=== PATIENT | male | born 1955 | race Caucasian/White ===

== ENCOUNTER 2018-11-07 15:28 | Emergency (ER) | payer MEDICAID ==
[2018-11-07] MEDS ORDERED: Cyclobenzaprine TAB* 10 MG PO ONE (15:51)
[2018-11-07] MEDS ORDERED: Lidocaine PATCH 5%* 1 PATCH ONE ×2 (16:01)
[2018-11-07 17:03] VITALS: BP 149/71
--- NOTE | 2018-11-07 17:03 | ED ---
Back Pain - HPI Summary HPI Summary: Pt is a 62 y/o male who presents to the ED c/o back pain. Hes had constant back pain and sciatica for decades but the pain has become worse in the past 6 weeks. Pt rates the pain as a 9/10 in severity, is located in his center back , and is made worse with movement. He denies any new injury. Pt also c/o numbness and weakness in his legs which is constant due to his sciatica. He denies any urinary symptoms. Pt was in a [facility] for 7 years because his back pain makes him unable to function, but was discharged 6 weeks ago. He notes having multiple imaging studies for his pain in the past, and has tried both physical therapy and chiropractors. PMHx Wernickes Encephalopathy. Pt takes Flexeril and Depakote, but has been off the Flexeril the past 6 weeks. - History of Current Complaint Stated Complaint: BACK PAIN Time Seen by Provider: 11/07/18 15:37 Hx Obtained From: Patient Onset/Duration: Gradual Onset, Lasting Weeks - 6, Worse Since Timing: Constant Back Pain Location: Is Discrete @ - center back Severity Currently: Severe Pain Intensity: 9 Pain Scale Used: 0-10 Numeric Aggravating Symptom(s): Movement Alleviating Symptom(s): Nothing Associated Signs And Symptoms: Positive: Weakness, Numbness. Negative: Bladder Incontinence - Allergies/Home Medications Allergies/Adverse Reactions: Allergies Allergy/AdvReac Type Severity Reaction Status Date / Time No Known Allergies Allergy Verified 11/07/18 15:46 Home Medications: Home Medications Divalproex DR TAB(*) [Depakote DR TAB(*)] 125 mg PO TID 11/07/18 [History Confirmed 11/07/18] PMH/Surg Hx/FS Hx/Imm Hx Endocrine/Hematology History: Denies: Hx Diabetes Cardiovascular History: Denies: Hx Hypertension Neurological History: Reports: Hx Dementia - Wernicke's Encephalopathy, Other Neuro Impairments/Disorders - Sciatica Psychiatric History: Reports: Hx Anxiety, Other Psychiatric Issues/Disorders - ETOH Infectious Disease History: No Infectious Disease History: Denies: Traveled Outside the US in Last 30 Days - Family History Known Family History: Negative: Hypertension - Social History Alcohol Use: Weekly Hx Substance Use: No Substance Use Type: Reports: None Hx Tobacco Use: Yes Smoking Status (MU): Light Every Day Tobacco Smoker Review of Systems Genitourinary: Negative Positive: Myalgia - back Positive: Weakness - legs, Numbness - legs All Other Systems Reviewed And Are Negative: Yes Physical Exam - Summary Physical Exam Summary: Appearance: chronically-ill appearing, no pain distress Skin: warm, dry, reflects adequate perfusion Head/face: normal Eyes: EOMI, SPIKE ENT: mucous membranes moist Neck: supple, non-tender Respiratory: CTA, breath sounds present Cardiovascular: RRR, pulses symmetrical Abdomen: non-tender, soft Bowel Sounds: present Musculoskeletal: strength/ROM intact, pain with movement of low lumbar back, no palpable back pain, negative straight leg raise Neuro: normal, sensory motor intact, A&Ox3, 2+ patellar DTRs, normal saddle and LE sensation Triage Information Reviewed: Yes Vital Signs On Initial Exam: Initial Vitals Temp Pulse Resp BP Pulse Ox 99.2 F 97 16 144/96 99 11/07/18 15:39 11/07/18 15:39 11/07/18 15:39 11/07/18 15:39 11/07/18 15:39 Vital Signs Reviewed: Yes Diagnostics - Vital Signs Vital Signs Temp Pulse Resp BP Pulse Ox 11/07/18 15:39 99.2 F 97 16 144/96 99 - Laboratory Lab Statement: Any lab studies that have been ordered have been reviewed, and results considered in the medical decision making process. - CT Lumbar Spine CT CT Interpretation Completed By: Radiologist Summary of CT Findings: 1. OSTEOPENIA WITH AGE-INDETERMINATE COMPRESSION DEFORMITIES OF T12, L3, AND L4 WITHOUT SIGNIFICANT OSSEOUS RETROPULSION. 2. DEGENERATIVE DISC DISEASE AND OSTEOARTHRITIS. THERE IS NEURAL FORAMINAL NARROWING DESCRIBED ABOVE. THERE IS NO SIGNIFICANT CENTRAL CANAL STENOSIS. ED physician reviewed radiology report. - Ultrasound No standard instances Ultrasound Interpretation Completed By: Radiologist Summary of Ultrasound Findings: US performed at bedside by ED physician: abdominal aorta 2.32 cm in diameter Back Pain Course/Dx - Course Course Of Treatment: Nurse's notes reviewed. Patient with chronic back pain for many many years that is worse basically on no treatment. He is found to have confirmed compression fractures on CT scan today. These are likely chronic in nature. He had no new trauma. There is no evidence for metastatic disease. On abdominal ultrasound at the bedside by me there is no abdominal aortic aneurysm. He was feeling better with Lidoderm patch and Flexeril. He' ll be placed on Mobic given normal renal function in the past as well as as needed Flexeril. If elected continue Lidoderm patch he will have to have this preauthorized by his doctor. - Diagnoses Differential Diagnosis/HQI/PQRI: Positive: Aneurysm, Arthritis, Fracture, Herniated Disc, Neoplasm, Osteoporosis, Strain, Sprain Provider Diagnoses: Chronic back pain, Thoracic compression fracture, Lumbar compression fracture Discharge - Sign-Out/Discharge Documenting (check all that apply): Patient Departure - Discharge Patient Received Moderate/Deep Sedation with Procedure: No - Discharge Plan Condition: Stable Disposition: HOME Prescriptions: Cyclobenzaprine (NF) [Cyclobenzaprine 5 MG (NF)] 5 mg PO TID PRN #20 tab PRN Reason: back pain Meloxicam [Mobic] 7.5 mg PO DAILY #30 tablet Patient Education Materials: Vertebral Compression Fracture (ED) Referrals: Judd Tejada MD [Primary Care Provider] - Enoch Higgins MD [Medical Doctor] - Additional Instructions: Call first thing in the morning to schedule prompt follow-up with your family doctor. You have multiple compression fractures that are causing problems. Follow-up with the neuro spine surgeon Dr. Higgins. Return with the faculty urinating, instability when walking, numbness/weakness that is new, worse or other concerns. - Billing Disposition and Condition Condition: STABLE Disposition: Home - Attestation Statements Document Initiated by Elizabethibe: Yes Documenting Scribe: Traci Feng Provider For Whom Scribe is Documenting (Include Credential): Lennox Cotto MD Scribe Attestation: ITraci, scribed for Lennox Cotto MD on 11/07/18 at 1720. Scribe Documentation Reviewed: Yes Provider Attestation: The documentation as recorded by the Traci zendejas accurately reflects the service I personally performed and the decisions made by me, Lennox Cotto MD Status of Scribe Document: Viewed
[2018-11-07] MEDS ORDERED: Lidocaine Patch REMOVE* 1 NOTE MISC SCH (21:00)
[2018-11-08] MEDS ORDERED: Lidocaine PATCH 5%* 1 PATCH TRANSDERM ONE (15:53)
== END 2018-11-07 17:02 | disposition home or self-care (01) ==
LOC: ED 15:28
DX: S22.080A Wedge compression fracture of T11-T12 vertebra, initial encounter for closed fracture (principal); S32.030A Wedge compression fracture of third lumbar vertebra, initial encounter for closed fracture; S32.040A Wedge compression fracture of fourth lumbar vertebra, initial encounter for closed fracture; X58.XXXA Exposure to other specified factors, initial encounter; Y92.9 Unspecified place or not applicable; F17.200 Nicotine dependence, unspecified, uncomplicated
CPT/HCPCS: 72131; 99282; A9270-GY

== ENCOUNTER 2019-03-26 16:35 | Inpatient (IN) | payer MEDICAID ==
[2019-03-26] MEDS ORDERED: Thiamine IV 100 MG, Folic Acid IV* 1 MG, Multiple Vitamin IV ADULT* 10 ML in NS 0.9% 10... IV ONE (17:07)
--- NOTE | 2019-03-26 17:35 | ED ---
Seizure - HPI Summary HPI Summary: 63-year-old male presents with potentially seizure today. He was at the [facility] building when had a seizure and EMS was called. he was post ictal for 25 minutes. When arrive here was a bit groggy. He denies any history of seizure. He does have a history of werinecke encephalopathy. He states he did drink some alcohol yesterday but did not drink anything today. He states he's been drinking less alcoho he states than in the past. He denies any nausea vomiting. He does admit to headache. Denies any tremor. Does admit to some anxiety. No auditory or visual hallucinations. His record shows that he is on Depakote but is unsure why on such. is homeless. He is a poor historian. He denies any pain currently. - History Of Current Complaint Chief Complaint: EDSeizure Time Seen by Provider: 03/26/19 16:59 - Allergies/Home Medications Allergies/Adverse Reactions: Allergies Allergy/AdvReac Type Severity Reaction Status Date / Time Milk Containing Products Allergy Diarrhea Verified 03/26/19 16:49 PMH/Surg Hx/FS Hx/Imm Hx Endocrine/Hematology History: Denies: Hx Diabetes Cardiovascular History: Denies: Hx Hypertension Neurological History: Reports: Hx Dementia - Wernicke's Encephalopathy, Other Neuro Impairments/Disorders - Sciatica Psychiatric History: Reports: Hx Anxiety, Other Psychiatric Issues/Disorders - ETOH Infectious Disease History: No Infectious Disease History: Denies: Traveled Outside the US in Last 30 Days - Family History Known Family History: Negative: Hypertension - Social History Alcohol Use: Weekly Hx Substance Use: No Substance Use Type: Reports: None Hx Tobacco Use: Yes Smoking Status (MU): Light Every Day Tobacco Smoker Review of Systems Negative: Fever Negative: Chest Pain Negative: Shortness Of Breath Neurological: Other - potential seizure All Other Systems Reviewed And Are Negative: Yes Physical Exam Triage Information Reviewed: Yes Vital Signs On Initial Exam: Initial Vitals Temp Pulse Resp BP Pulse Ox 99.1 F 117 16 140/107 97 03/26/19 16:42 03/26/19 16:42 03/26/19 16:42 03/26/19 16:42 03/26/19 16:42 Vital Signs Reviewed: Yes Appearance: Positive: Well-Appearing Skin: Positive: Warm, Dry Head/Face: Positive: Normal Head/Face Inspection Eyes: Positive: Normal, Conjunctiva Clear ENT: Positive: Pharynx normal Respiratory/Lung Sounds: Positive: Clear to Auscultation, Breath Sounds Present Cardiovascular: Positive: Normal, RRR Abdomen Description: Positive: Nontender, Soft Bowel Sounds: Positive: Present Musculoskeletal: Positive: Normal Neurological: Positive: Sensory/Motor Intact, Alert, Oriented to Person Place, Time, CN Intact II-III Psychiatric: Positive: Normal - [place] Coma Scale Best Eye Response: 4 - Spontaneous Best Motor Response: 6 - Obeys Commands Best Verbal Response: 5 - Oriented Coma Scale Total: 15 Diagnostics - Vital Signs Vital Signs Temp Pulse Resp BP Pulse Ox 03/26/19 17:23 110 24 134/93 96 03/26/19 17:06 110 23 148/93 96 03/26/19 17:00 111 96 03/26/19 16:53 112 97 03/26/19 16:42 99.1 F 117 16 140/107 97 - Laboratory Result Diagrams: 03/26/19 17:33 03/26/19 22:28 Lab Statement: Any lab studies that have been ordered have been reviewed, and results considered in the medical decision making process. - CT brain CT Interpretation Completed By: Radiologist Summary of CT Findings: IMPRESSION: NO ACUTE INTRACRANIAL PATHOLOGY. DIFFUSE INVOLUTIONAL CHANGE WITH CHRONIC SMALL VESSEL ISCHEMIC CHANGES. - EKG No standard instances Cardiac Rate: Tachycardia EKG Rhythm: Sinus Tachycardia Summary of EKG Findings: sinus tachycardia Re-Evaluation - Re-Evaluation First Eval Re-Evaluation Time: 19:20 Change: Improved Comment: is more alert Course/Dx - Course Course Of Treatment: 63-year-old male presents with potentially seizure today. He was at the [facility] building when had a seizure and EMS was called. he was post ictal for 25 minutes. When arrive here was a bit groggy. He denies any history of seizure. He does have a history of werinecke encephalopathy. He states he did drink some alcohol yesterday but did not drink anything today. He states he's been drinking less alcoho he states than in the past. He denies any nausea vomiting. He does admit to headache. Denies any tremor. Does admit to some anxiety. No auditory or visual hallucinations. His record shows that he is on Depakote but is unsure why on such. is homeless. He is a poor historian. He denies any pain currently. On exam he was initially groggy but is alert and oriented. Has a normal neuro exam. CT brain normal. lactic elevated. CIWA-Ar initially 4. discussed with dr bardales who says to admit for ETOH seizure vs new onset. dr ray agrees to admit. - Diagnoses Differential Diagnosis/HQI/PQRI: Positive: Alcohol Withdrawal, Intracranial Bleed, New Onset Seizure Provider Diagnoses: Seizure Discharge - Sign-Out/Discharge Documenting (check all that apply): Patient Departure Patient Received Moderate/Deep Sedation with Procedure: No - Discharge Plan Condition: Stable Disposition: ADMITTED TO [facility] - Billing Disposition and Condition Condition: STABLE Disposition: Admitted to [facility]
[2019-03-26 17:40] LABS: ABS Lymphocytes 0.5 10^3/ul (1.0-4.8); ABS Monocytes 0.5 10^3/ul (0-0.8); ABS Neutrophils 7.1 10^3/ul (1.5-7.7); Eosinophil % 0.1 %; Hematocrit 48 % (42-52); Hemoglobin 16.4 g/dL (14.0-18.0); Lymphocyte % 6.1 %; Mean Corpuscular HGB Conc 34 g/dL (31-36); Mean Corpuscular Hemoglobin 33 pg (27-31); Mean Corpuscular Volume 96 fL (80-94); Mean Platelet Volume 8.6 fL (7.4-10.4); Nucleated Red Blood Cells % 0.1; Platelet Count 150 10^3/uL (150-450); Red Blood Count 5.02 10^6 /uL (4.18-5.48); Red Cell Distribution Width 16 % (10-15); White Blood Count 8.2 10^3/uL (3.5-10.8)
[2019-03-26 17:53] LABS: INR 1.09 (0.82-1.09)
[2019-03-26 17:59] LABS: ALT 89 U/L (7-52); AST 54 U/L (13-39); Albumin 3.9 g/dL (3.2-5.2); Albumin/Globulin Ratio 1.3 (1-3); Alkaline Phosphatase 69 U/L (34-104); Anion Gap 9 mmol/L (2-11); BUN/Creatinine Ratio 10.3 (8-20); Blood Urea Nitrogen 7 mg/dL (6-24); CO2 Carbon Dioxide 24 mmol/L (22-32); Calcium 9.6 mg/dL (8.6-10.3); Chloride 91 mmol/L (101-111); EGFR African American 142.5 (>60); EGFR Non-African American 117.8 (>60); Globulin 3.1 g/dL (2-4); Glucose 114 mg/dL (70-100); Magnesium 1.9 mg/dL (1.9-2.7); Potassium 4.4 mmol/L (3.5-5.0); Sodium 124 mmol/L (135-145)
[2019-03-26 18:06] LABS: Alcohol < 10 mg/dL (<10)
[2019-03-26 19:15] LABS: Urine Appearance Cloudy; Urine Bacteria Absent (Absent); Urine Bilirubin Negative (Negative); Urine Blood 1+ (Negative); Urine Color Amber; Urine Glucose Negative (Negative); Urine Ketones 1+ (Negative); Urine Nitrite Negative (Negative); Urine Protein 1+(30 mg/dL) (Negative); Urine Red Blood Cell 2+(6-10/hpf) (Absent); Urine Specific Gravity 1.015 (1.010-1.030); Urine Squamous Epithelial Cell Present (Absent); Urine Urobilinogen Negative (Negative); Urine White Blood Cell Trace(0-5/hpf) (Absent)
--- NOTE | 2019-03-26 21:47 | HP ---
History of Present Illness - History of Present Illness Reason for Visit: Witnessed Seizure History of Present Illness: 63YOM with alcohol abuse, Wernicke's encephalopathy, Dementia, Ejection fraction reported to be 30% in 2009, possible seizure Hx here due to witnessed seizure. Patient doesn't recall the event. Complains of his chronic back pain at this time. Last alcohol use was today. I discussed with ER staff who state patient is homeless and was to be placed in care home and has been having his story change throughout his ER stay likely confabulation. - Past Medical History PATIENT PARTNER: Dementia, Other - Wernicke's encephalopathy, Possible seizures. - Past Surgical History Past Surgical History: Other - Arthoscopic surgery of right knee. - Past Family History Family History: None - Past Social History Smoke: 1 pack per day - 40 years of Hx Alcohol: Heavy - 12pack of beer a night. About 40 years of alcohol as well. Drugs: Cocaine - Used it as teenager., Marijuana - Used as teenager. Lives: Alone - Lives in apartment. Review of Systems - Measurements Intake and Output: Intake and Output Last 24 Hours 03/24/19 03/25/19 03/26/19 03/27/19 06:59 06:59 06:59 06:59 Output Total 1000 Balance -1000 Weight 150 lb Output: Urine 1000 - Review of Systems Constitutional Symptoms: Negative: Fatigue, Fever Eyes: Negative: Change in Vision Pulmonary: Negative: Cough, Shortness of Breath Cardiology: Negative: Chest Pain, Shortness of Breath Gastroenterology: Positive: Nausea Negative: Vomiting Neurology: Negative: Headache, Change in Vision, Diplopia Objective Active Medications: Allergies Allergy/AdvReac Type Severity Reaction Status Date / Time Milk Containing Products Allergy Diarrhea Verified 03/26/19 16:[address] TAB(*) [Depakote DR TAB(*)] 125 mg PO TID 11/07/18 [History Confirmed 03/26/19] Vital Signs - 8 hr 03/26/19 03/26/19 03/26/19 16:42 16:53 17:00 Temperature 99.1 F Pulse Rate 117 112 111 Respiratory 16 Rate Blood Pressure 140/107 (mmHg) O2 Sat by Pulse 97 97 96 Oximetry 03/26/19 03/26/19 03/26/19 17:06 17:23 17:48 Temperature Pulse Rate 110 110 Respiratory 23 24 Rate Blood Pressure 148/93 134/93 (mmHg) O2 Sat by Pulse 96 96 97 Oximetry 03/26/19 03/26/19 03/26/19 17:53 18:00 18:23 Temperature Pulse Rate 108 106 107 Respiratory 29 33 23 Rate Blood Pressure 137/87 143/93 (mmHg) O2 Sat by Pulse 97 96 95 Oximetry 03/26/19 03/26/19 03/26/19 18:53 19:00 19:23 Temperature Pulse Rate 104 105 101 Respiratory 30 25 21 Rate Blood Pressure 132/92 148/94 (mmHg) O2 Sat by Pulse 98 99 99 Oximetry 03/26/19 03/26/19 19:53 20:00 Temperature Pulse Rate 99 100 Respiratory 26 20 Rate Blood Pressure 147/97 (mmHg) O2 Sat by Pulse 98 95 Oximetry Oxygen Devices in Use Now: None Eyes: No Scleral Icterus Ears/Nose/Mouth/Throat: NL Teeth, Lips, Gums, Clear Oropharnyx, Mucous Membranes Moist Neck: NL Appearance and Movements; NL JVP Respiratory: Clear to Auscultation Cardiovascular: NL Sounds; No Murmurs; No JVD, - - Tachycardia Abdominal: NL Sounds; No Tenderness; No Distention, No Hepatosplenomegaly Skin: - - Erythema noted on face likely sunburn. Neurological: Alert and Oriented x 3, NL Sensation, NL Muscle Strength and Tone Result Diagrams: 03/26/19 17:33 03/26/19 22:28 Diagnostic Imaging: CT brain: No acute changes. EKG Data: Sinus Tachy at 112. Old Inferior infarct. Assess/Plan/Problems-Billing Assessment: 63YOM with alcohol abuse, Wernicke's encephalopathy, Dementia, Ejection fraction reported to be 30% in 2008, possible seizure Hx here due to witnessed seizure. ER spoke with neurology who recommended monitoring overnight given his homeless status. - Patient Problems (1) Seizure Current Visit: Yes Status: Acute Code(s): R56.9 - UNSPECIFIED CONVULSIONS SNOMED Code(s): 54019243 Comment: Follow up Neurology recommendation. EEG. Continue the home dilantin. (2) Hyponatremia Current Visit: Yes Status: Acute Code(s): E87.1 - HYPO-OSMOLALITY AND HYPONATREMIA SNOMED Code(s): 43973475 Comment: Check serum osmo and urine lytes. Start IV hydration. (3) Alcohol abuse Current Visit: Yes Status: Acute Code(s): F10.10 - ALCOHOL ABUSE, UNCOMPLICATED SNOMED Code(s): 90130687 Comment: WAM monitoring. Ativan PRN for any anxiety. (4) Lactic acid acidosis Current Visit: Yes Status: Acute Code(s): E87.2 - ACIDOSIS SNOMED Code(s) : 05641078 Comment: Likely due to seizure repeat lab normal.
[2019-03-26] MEDS ORDERED: NS 0.9% 1000 ML** 1,000 ML IV SCH (22:15)
[2019-03-26 22:54] LABS: BUN/Creatinine Ratio 9.8 (8-20); Calcium 9.2 mg/dL (8.6-10.3); EGFR African American 161.5 (>60); EGFR Non-African American 133.5 (>60); Potassium 3.9 mmol/L (3.5-5.0)
[2019-03-26] MEDS: Enoxaparin(*) 40 MG/0.4 ML SYR SUBCUT SCH (23:39)
[2019-03-27] MEDS ORDERED: LORazepam TAB(*) 0.5 MG PO PRN (00:12)
[2019-03-27] MEDS ORDERED: Thiamine IV* 100 MG in NS 0.9% 50 ML* 50 ML IV SCH (01:00)
[2019-03-27] MEDS ORDERED: LORazepam INJ* 2 MG/ML 1 ML VIAL IM SCH (03:00)
[2019-03-27] MEDS ORDERED: Diazepam TAB(*) 10 MG PO SCH (03:00)
[2019-03-27] MEDS ORDERED: LORazepam TAB(*) 1 MG PO SCH (03:00)
[2019-03-27 06:32] LABS: ABS Monocytes 0.6 10^3/ul (0-0.8); ABS Neutrophils 4.5 10^3/ul (1.5-7.7); Eosinophil % 0.3 %; Hematocrit 46 % (42-52); Hemoglobin 15.8 g/dL (14.0-18.0); Lymphocyte % 15.6 %; Mean Corpuscular HGB Conc 35 g/dL (31-36); Mean Corpuscular Hemoglobin 33 pg (27-31); Mean Corpuscular Volume 96 fL (80-94); Mean Platelet Volume 8.7 fL (7.4-10.4); Nucleated Red Blood Cells % 0.1; Platelet Count 121 10^3/uL (150-450); Red Blood Count 4.74 10^6 /uL (4.18-5.48); Red Cell Distribution Width 16 % (10-15); White Blood Count 6.1 10^3/uL (3.5-10.8)
[2019-03-27 06:51] LABS: Albumin 3.3 g/dL (3.2-5.2); Albumin/Globulin Ratio 1.1 (1-3); BUN/Creatinine Ratio 9.1 (8-20); Calcium 8.8 mg/dL (8.6-10.3); EGFR Non-African American 150.4 (>60); Globulin 2.9 g/dL (2-4); Indirect Bilirubin 0.6 mg/dL (0.3-1.0); Potassium 3.4 mmol/L (3.5-5.0); Total Bilirubin 0.9 mg/dL (0.2-1.0); Total Protein 6.2 g/dL (6.4-8.9)
[2019-03-27] MEDS: Folic Acid TAB* 1 MG PO SCH (10:10)
[2019-03-27] MEDS: Divalproex DR TAB(*) 125 MG PO SCH ×2 (10:10→14:21)
[2019-03-27] MEDS: Multivitamins/Minerals TAB PO SCH (10:10)
[2019-03-27] MEDS: KCL 20 MEQ/100 ML IVPREMIX* 20 MEQ/100 ML BAG IV SCH ×2 (10:16→14:21)
[2019-03-27] MEDS ORDERED: Acetaminophen TAB* 325 MG PO PRN (11:30)
--- NOTE | 2019-03-27 15:39 | CONS ---
NEUROLOGY CONSULTATION: DATE OF CONSULT: 03/27/19 LOCATION: He is an inpatient in room 450. REFERRING PHYSICIAN: Dr. Musa Patel. CHIEF COMPLAINT: Seizure. HISTORY OF PRESENT ILLNESS: Jimbo Garcia is a 63-year-old man with a long history of alcoholism and dementia presumed to be from alcoholism. He apparently was at psychotherapist social worker today and collapsed. Emergency department documentation indicates that he had a seizure at the [facility] and was postictal for 25 minutes. When evaluated in the emergency room , he was described as groggy. He according to the emergency room personnel, said he had alcohol yesterday, but not today. The patient is demented and unreliable and he says he has not been drinking alcohol to me today, but then when I explained that one cause for seizures could be alcohol withdrawal seizures, he said that "that makes sense." He clearly was confabulating. There is an extensive history in the records of substance abuse mainly alcohol, dementia going back to at least 2006 if not before, alcohol detoxification, delirium tremens. He is reportedly now homeless. There are records that he resided at [facility] for some number of years in the past. Somewhere along the line, it was felt that he might be on Depakote. His level was undetectable when he came in. He was started on Depakote by Dr. Elliot rausch when he came in last evening. The patient does not recognize the name Depakote and says he was not on any medications. His history has to be considered unreliable, however. There are psychiatric records indicating that he was on medications for being agitated and apparently sexually inappropriate to other [facility] the [facility]. There are some records from [facility] from 2010 when he was there that he was on Seroquel, hydrocodone, and that he has a history of alcoholic dementia, chronic back pain, lumbar stenosis, hypertension. REVIEW OF SYSTEMS: From the patient is unproductive. He denies abdominal problems. He denies headaches. He says he is steady on his feet. PHYSICAL EXAM: He is a somewhat disheveled man with long hair and a long farah. He is quite thin. Temperature is 98.3, T-max was 99.1 when he first came in. He has been persistently tachycardic until today when he is down into the 90s. Respiratory rate is 16 and oxygen saturation is 100% on room air. Blood pressure most recently 131/82, he was running 140/107 and 150/90 earlier when he came in. Heart tones are normal. Neurological Exam: Eye movements are full without nystagmus. Pupils react equally from 4.5 to 3 mm. There is no nystagmus. Facial musculature is symmetric. Speech is soft, but clear. There is no asterixis or myoclonus in the hands. There is no sustention or rest tremor. He has antigravity strength in all limbs. He is oriented to time, able to say the month, day of the week, and year. He is disoriented to place. When asked where are we now he says where he grew up and then says he grew up in a town in [place]. He says that he remembers me we when asked but we have never met before LABORATORY DATA: Includes a CBC with an MCV of 96 and platelet count of 121, 000. INR yesterday when he came in was at the upper limits of normal at 1.09. Chemistry profile was notable for a sodium of 130 yesterday, AST elevated at 63 , direct bilirubin elevated at 0.3, ALT elevated at 75. Lactic acid was elevated yesterday in the emergency room at 2.9 and came down to 1.2 yesterday evening. Serum alcohol level was undetectable in the ER yesterday and valproic acid level was also undetectable. Urinalysis is unremarkable. IMPRESSION AND PLAN: Impression is that of alcoholic dementia, seizure which is probably alcohol withdrawal. I found no evidence in the records of a prior actual epileptic disorder. I have stopped the Depakote. I have ordered an EEG. I recommend increasing his thiamine to doses appropriate for patients for possible Wernicke's encephalopathy. We will check a vitamin B12 level, B6, and folate level as well as an ammonia level. I do not see an indication for anticonvulsants at this point in time, but recommend to continue the [facility] protocol. I will continue to follow him along with you. [id number]/[facility] #: [id number] [facility]OSPITALGurpreet
[2019-03-27] MEDS: NS 0.9% IV SCH (15:55)
[2019-03-27] MEDS: THIAMINE IV SCH (15:55)
[2019-03-27 16:38] LABS: TSH (Thyroid Stimulating Horm) 1.75 mcIU/mL (0.34-5.60)
--- NOTE | 2019-03-27 19:15 | PN ---
Subjective Date of Service: 03/27/19 Interval History: Patient appears confused while answering questions. Believes I have asked him questions about his symptoms before. Tells me he lives in his dad's apartment where his dad is the landlord, but then later says his dad is . Known to be homeless. Denies difficulty breathing, chest pain, abd pain, nausea, vomiting, visual changes. Objective Active Medications: Acetaminophen (Tylenol Tab*) 650 mg PO Q4H PRN PRN Reason: PAIN Diazepam (Valium Tab(*)) 0 mg PO Q8H [facility]; Taper Stop: 03/30/19 15:59 Enoxaparin Sodium (Lovenox(*)) 40 mg SUBCUT Q24H [facility] Last Admin: 03/26/19 23:39 Dose: 40 mg Folic Acid (Folvite Tab*) 1 mg PO DAILY [facility] Last Admin: 03/27/19 10:10 Dose: 1 mg Sodium Chloride (Ns 0.9% 1000 Ml) 1,000 mls @ 75 mls/hr IV PER RATE [facility] Last Admin: 03/26/19 23:52 Dose: 75 mls/hr Thiamine HCl 300 mg/ Sodium (Chloride) 53 mls @ 102 mls/hr IV Q24H [facility] Stop: 03/29/19 14:59 Last Admin: 03/27/19 15:55 Dose: 102 mls/hr Lorazepam (Ativan Tab(*)) 0.5 mg PO Q4H PRN PRN Reason: ANXIETY Lorazepam (Ativan Tab(*)) 0 - 6 mg PO .PER [facility] PROTOCOL [facility]; Protocol Multivitamins/Minerals (Theragran/Minerals Tab*) 1 tab PO DAILY [facility] Last Admin: 03/27/19 10:10 Dose: 1 tab Vital Signs - 8 hr 03/27/19 03/27/19 03/27/19 11:30 13:21 15:04 Temperature 98.2 F 98.1 F 98.0 F Pulse Rate 94 91 90 Respiratory 16 19 16 Rate Blood Pressure 122/79 132/82 132/82 (mmHg) O2 Sat by Pulse 99 99 99 Oximetry 03/27/19 17:25 Temperature 98.0 F Pulse Rate 82 Respiratory 16 Rate Blood Pressure 142/93 (mmHg) O2 Sat by Pulse 99 Oximetry Oxygen Devices in Use Now: None Appearance: Thin, white male laying upright in hospital bed, appears older than stated age, appearing in NAD Eyes: No Scleral Icterus, PERRLA Ears/Nose/Mouth/Throat: Mucous Membranes Moist Neck: NL Appearance and Movements; NL JVP Respiratory: Symmetrical Chest Expansion and Respiratory Effort, Clear to Auscultation Cardiovascular: NL Sounds; No Murmurs; No JVD, RRR Abdominal: - - abd soft, nontender nondistended Extremities: No Edema, No Clubbing, Cyanosis Skin: No Rash or Ulcers Neurological: NL Muscle Strength and Tone, - - Alert, oriented to self, location , and time but not situation Result Diagrams: 03/27/19 06:18 03/27/19 06:18 Microbiology and Other Data: Microbiology 03/26/19 18:47 Urine Culture - Final Urine No Growth (<1,000 CFU/mL) Diagnostic Imaging: CT brain: No acute changes. EKG Data: Sinus Tachy at 112. Old Inferior infarct. Assess/Plan/Problems-Billing Assessment: 63YOM with alcohol abuse, Wernicke's encephalopathy, Dementia, Ejection fraction reported to be 30% in 2008, arrives to ED due to witnessed seizure. - Patient Problems (1) Seizure Current Visit: Yes Status: Acute Code(s): R56.9 - UNSPECIFIED CONVULSIONS SNOMED Code(s): 32850664 Comment: -patient experienced witnessed seizures -apparently prescribed depakote, depakote level negative, but neuro doesn't believe patient has documented seizure history -EEG pending -neuro believes seizure due to alcohol withdrawal (2) Alcohol abuse Current Visit: Yes Status: Acute Code(s): F10.10 - ALCOHOL ABUSE, UNCOMPLICATED SNOMED Code(s): 64240256 Comment: -continue WAM -ordered scheduled diazepam for seizure ppx -increased thiamine due to hx wernicke's per neuro rec (3) Transaminitis Current Visit: Yes Status: Acute Code(s): R74.0 - NONSPEC ELEV OF LEVELS OF TRANSAMNS & LACTIC ACID DEHYDRGNSE SNOMED Code(s): 084978404 Comment: -likely related to alcohol abuse, but doesn't match AST:ALT 2:1 ratio -ordered acute hepatitis panel (4) Homeless Current Visit: Yes Status: Acute Code(s): Z59.0 - HOMELESSNESS SNOMED Code (s): 14995250 Comment: -social work involved -patient involved in program to help remain in the community, seems to be failing in the community given homelessness -ordered OT/PT for placement (5) Hyponatremia Current Visit: Yes Status: Acute Code(s): E87.1 - HYPO-OSMOLALITY AND HYPONATREMIA SNOMED Code(s): 11412410 Comment: -mildly improved today, d/c'd NS -will continue to monitor -ordered urine osmo and urine Na for tomorrow (6) DVT prophylaxis Current Visit: Yes Status: Acute Code(s): Z29.9 - ENCOUNTER FOR PROPHYLACTIC MEASURES, UNSPECIFIED SNOMED Code(s): 869650921 Comment: -lovenox (7) Full code status Current Visit: Yes Status: Acute Code(s): Z78.9 - OTHER SPECIFIED HEALTH STATUS SNOMED Code(s): 439481779
[2019-03-27] MEDS: Diazepam TAB(*) 10 MG PO SCH (21:12)
[2019-03-27] MEDS: Enoxaparin(*) 40 MG/0.4 ML SYR SUBCUT SCH (21:13)
[2019-03-27 21:59] LABS: Urine Potassium Concentration 74.7 mmol/L
[2019-03-28] MEDS: Diazepam TAB(*) 10 MG PO SCH ×3 (05:14→17:17)
[2019-03-28 07:29] LABS: BUN/Creatinine Ratio 14.3 (8-20); Calcium 8.6 mg/dL (8.6-10.3); EGFR African American 155.6 (>60); EGFR Non-African American 128.6 (>60); Potassium 3.9 mmol/L (3.5-5.0)
[2019-03-28] MEDS: Multivitamins/Minerals TAB PO SCH (09:24)
[2019-03-28] MEDS: Folic Acid TAB* 1 MG PO SCH (09:24)
[2019-03-28 09:57] LABS: Hepatitis B Surface Antigen Negative (Negative)
[2019-03-28 10:14] LABS: Hepatitis C Antibody Negative (Negative)
--- NOTE | 2019-03-28 11:33 | PN ---
Subjective Date of Service: 03/28/19 Interval History: Mr. Garcia is feeling fine this morning. He offers no complaints. When asked if he knows why he is in the hospital, he replied "I could guess, but why don't you tell me." He denies CP, SOB, N/V/D. He became somewhat agitated when talking about alcohol and denies being an alcoholic, saying "I've known some alcoholics in my life." He does admit to drinking a 12 pack of beer per night and does not feel as though drinking beer makes his an alcoholic. No concerns from nursing. Family History: Unchanged from Admission Social History: Unchanged from Admission Past Medical History: Unchanged from Admission Objective Active Medications: Acetaminophen (Tylenol Tab*) 650 mg PO Q4H PRN PAIN Diazepam (Valium Tab(*)) 10 mg PO Q8H [facility]; Taper Enoxaparin Sodium (Lovenox(*)) 40 mg SUBCUT Q24H [facility] Folic Acid (Folvite Tab*) 1 mg PO DAILY [facility] Thiamine HCl 300 mg/ Sodium (Chloride) 53 mls @ 102 mls/hr IV Q24H [facility] Lorazepam (Ativan Tab(*)) 0 - 6 mg PO .PER [facility] PROTOCOL [facility]; Protocol Multivitamins/Minerals (Theragran/Minerals Tab*) 1 tab PO DAILY [facility] Vital Signs - 8 hr 03/28/19 03/28/19 05:14 05:31 Temperature 97.6 F Pulse Rate 80 Respiratory 20 22 Rate Blood Pressure 110/72 (mmHg) O2 Sat by Pulse 98 Oximetry Oxygen Devices in Use Now: None Appearance: Middle-aged disheveled male sitting in bed in NAD Eyes: No Scleral Icterus Ears/Nose/Mouth/Throat: Mucous Membranes Moist Neck: NL Appearance and Movements; NL JVP, Trachea Midline Respiratory: Symmetrical Chest Expansion and Respiratory Effort, Clear to Auscultation Cardiovascular: NL Sounds; No Murmurs; No JVD, RRR Abdominal: NL Sounds; No Tenderness; No Distention Extremities: No Edema Neurological: - - Oriented to self and place Lines/Tubes/Other Access: Clean, Dry and Intact Peripheral IV Nutrition: Taking PO's Result Diagrams: 03/27/19 06:18 03/28/19 06:45 Assess/Plan/Problems-Billing Assessment: Mr. Garcia is a 63 yo M with PMH of alcohol abuse, Wernicke's encephalopathy, dementia, and acute HR with ejection fraction of 30% in 2008; who presented to the ED after a witnessed seizure. - Patient Problems (1) Seizure Code(s): R56.9 - UNSPECIFIED CONVULSIONS Comment: - Seizures witnessed by EMS; no clear history of seizures - Suspect this was r/t alcohol withdrawal - EEG pending - Appreciate neurology consult; anticonvulsants not indicated at this time - Continue diazepam taper (2) Alcohol abuse Code(s): F10.10 - ALCOHOL ABUSE, UNCOMPLICATED Comment: - With alcoholic dementia - Concern for possible Wernicke's encephalopathy - Continue WAM - Continue high-dose thiamine per neurology, diazepam taper (3) Transaminitis Code(s): R74.0 - NONSPEC ELEV OF LEVELS OF TRANSAMNS & LACTIC ACID DEHYDRGNSE Comment: - Likely related to alcohol abuse, but does not match AST:ALT 2:1 ratio - Acute hepatitis panel negative - Will check liver US (4) Hyponatremia Code(s): E87.1 - HYPO-OSMOLALITY AND HYPONATREMIA Comment: - Improving - Possibly secondary to alcohol abuse - Continue to trend (5) Homeless Code(s): Z59.0 - HOMELESSNESS Comment: - Social work following - Already involved in program to help remain in the community, but seems to be failing in the community - Does not appear to have PT/OT needs based on evals (6) DVT prophylaxis Code(s): Z29.9 - ENCOUNTER FOR PROPHYLACTIC MEASURES, UNSPECIFIED Comment: - Lovenox (7) Full code status Code(s): Z78.9 - OTHER SPECIFIED HEALTH STATUS Comment: Status and Disposition: Inpatient for alcohol withdrawal and monitoring. D/c plan unclear as patient is homeless. Social work following. Attending: Asher Israel
[2019-03-28] MEDS: THIAMINE IV SCH (15:49)
[2019-03-28] MEDS: NS 0.9% IV SCH (15:49)
[2019-03-28] MEDS: Enoxaparin(*) 40 MG/0.4 ML SYR SUBCUT SCH (21:15)
[2019-03-29] MEDS: Diazepam TAB(*) 10 MG PO SCH ×2 (05:43→17:59)
[2019-03-29 07:09] LABS: Albumin 2.9 g/dL (3.2-5.2); Albumin/Globulin Ratio 1.2 (1-3); BUN/Creatinine Ratio 17.9 (8-20); Calcium 8.5 mg/dL (8.6-10.3); EGFR African American 178.3 (>60); EGFR Non-African American 147.4 (>60); Globulin 2.5 g/dL (2-4); Potassium 3.9 mmol/L (3.5-5.0); Total Bilirubin 0.4 mg/dL (0.2-1.0); Total Protein 5.4 g/dL (6.4-8.9)
[2019-03-29] MEDS: Multivitamins/Minerals TAB PO SCH (09:14)
[2019-03-29] MEDS: Folic Acid TAB* 1 MG PO SCH (09:14)
--- NOTE | 2019-03-29 15:50 | PN ---
Subjective Date of Service: 03/29/19 Interval History: Mr. Garcia is feeling fine today. He will not tell me anything further without specific questioning. He denies CP, SOB, N/V. Good appetite. No concerns from nursing. Family History: Unchanged from Admission Social History: Unchanged from Admission Past Medical History: Unchanged from Admission Objective Active Medications: Acetaminophen (Tylenol Tab*) 650 mg PO Q4H PRN PAIN Diazepam (Valium Tab(*)) 10 mg PO Q12H [facility] Diazepam (Valium Tab(*)) 5 mg PO Q12H [facility] Enoxaparin Sodium (Lovenox(*)) 40 mg SUBCUT Q24H [facility] Folic Acid (Folvite Tab*) 1 mg PO DAILY [facility] Multivitamins/Minerals (Theragran/Minerals Tab*) 1 tab PO DAILY [facility] Vital Signs - 8 hr 03/29/19 03/29/19 08:00 11:15 Temperature 97.7 F Pulse Rate 81 Respiratory 20 20 Rate Blood Pressure 123/81 (mmHg) O2 Sat by Pulse 97 Oximetry Oxygen Devices in Use Now: None Appearance: Middle-aged unkempt male laying in bed in NAD Eyes: No Scleral Icterus, - - Mild horizontal nystagmus Ears/Nose/Mouth/Throat: Mucous Membranes Moist Neck: NL Appearance and Movements; NL JVP, Trachea Midline Respiratory: Symmetrical Chest Expansion and Respiratory Effort, Clear to Auscultation Cardiovascular: NL Sounds; No Murmurs; No JVD, RRR Abdominal: NL Sounds; No Tenderness; No Distention Neurological: - - Oriented to self and place Lines/Tubes/Other Access: Clean, Dry and Intact Peripheral IV Nutrition: Taking PO's Result Diagrams: 03/27/19 06:18 03/29/19 05:54 Assess/Plan/Problems-Billing Assessment: Mr. Garcia is a 63 yo M with PMH of alcohol abuse, Wernicke's encephalopathy, dementia, and acute HR with ejection fraction of 30% in 2008; who presented to the ED after a witnessed seizure. - Patient Problems (1) Seizure Code(s): R56.9 - UNSPECIFIED CONVULSIONS Comment: - Seizures witnessed by EMS; no clear history of seizures - Suspect this was r/t alcohol withdrawal - EEG pending - Appreciate neurology consult; anticonvulsants not indicated at this time - Continue diazepam taper (2) Alcohol abuse Code(s): F10.10 - ALCOHOL ABUSE, UNCOMPLICATED Comment: - With alcoholic dementia - Concern for possible Wernicke's encephalopathy - Appreciate Psych eval for capacity; no safe discharge plan and may need placement - Continue WAM - Continue high-dose thiamine per neurology, diazepam taper (3) Transaminitis Code(s): R74.0 - NONSPEC ELEV OF LEVELS OF TRANSAMNS & LACTIC ACID DEHYDRGNSE Comment: - Now resolved - Likely related to alcohol abuse - Acute hepatitis panel negative - Liver US shows fatty infiltration, but no clear evidence of cirrhosis (4) Hyponatremia Code(s): E87.1 - HYPO-OSMOLALITY AND HYPONATREMIA Comment: - Improving - Possibly secondary to alcohol abuse - Continue to trend (5) Homeless Code(s): Z59.0 - HOMELESSNESS Comment: - Social work following - Already involved in program to help remain in the community, but seems to be failing in the community - Pending capacity eval (6) DVT prophylaxis Code(s): Z29.9 - ENCOUNTER FOR PROPHYLACTIC MEASURES, UNSPECIFIED Comment: - Lovenox (7) Full code status Code(s): Z78.9 - OTHER SPECIFIED HEALTH STATUS Comment: Status and Disposition: Inpatient for alcohol withdrawal and monitoring. D/c plan unclear. Social work following. Attending: Carroll Israel
[2019-03-29] MEDS: Enoxaparin(*) 40 MG/0.4 ML SYR SUBCUT SCH (21:07)
[2019-03-30] MEDS: Diazepam TAB(*) 5 MG PO SCH ×2 (05:04→17:25)
[2019-03-30 06:15] LABS: BUN/Creatinine Ratio 16.1 (8-20); Calcium 8.5 mg/dL (8.6-10.3); EGFR African American 178.3 (>60); EGFR Non-African American 147.4 (>60); Potassium 3.9 mmol/L (3.5-5.0)
[2019-03-30] MEDS: Folic Acid TAB* 1 MG PO SCH (08:01)
[2019-03-30] MEDS: Multivitamins/Minerals TAB PO SCH (08:01)
[2019-03-30] MEDS: Lactulose* 15 ML UDC PO SCH ×3 (11:12→20:21)
--- NOTE | 2019-03-30 12:39 | PN ---
Subjective Date of Service: 03/30/19 Interval History: Mr. Garcia is feeling well today. He offers no complaints and will not actively engage in conversation with me. He denies pain. Appetite is good. Denies CP, SOB , N/V. Does not feel confused. No concerns from nursing. Family History: Unchanged from Admission Social History: Unchanged from Admission Past Medical History: Unchanged from Admission Objective Active Medications: Acetaminophen (Tylenol Tab*) 650 mg PO Q4H PRN PAIN Diazepam (Valium Tab(*)) 5 mg PO Q12H [facility] Enoxaparin Sodium (Lovenox(*)) 40 mg SUBCUT Q24H [facility] Folic Acid (Folvite Tab*) 1 mg PO DAILY [facility] Lactulose (Lactulose*) 15 ml PO TID [facility] Multivitamins/Minerals (Theragran/Minerals Tab*) 1 tab PO DAILY [facility] Vital Signs - 8 hr 03/30/19 03/30/19 03/30/19 05:04 07:15 07:22 Temperature 97.7 F Pulse Rate 74 Respiratory 20 21 20 Rate Blood Pressure 122/75 (mmHg) O2 Sat by Pulse 98 Oximetry 03/30/19 03/30/19 08:00 11:15 Temperature 97.8 F Pulse Rate 76 Respiratory 18 20 Rate Blood Pressure 128/82 (mmHg) O2 Sat by Pulse 99 Oximetry Oxygen Devices in Use Now: None Appearance: Middle-aged male laying in bed in NAD Eyes: No Scleral Icterus Ears/Nose/Mouth/Throat: Mucous Membranes Moist Neck: NL Appearance and Movements; NL JVP, Trachea Midline Respiratory: Symmetrical Chest Expansion and Respiratory Effort, Clear to Auscultation Cardiovascular: NL Sounds; No Murmurs; No JVD, RRR Abdominal: NL Sounds; No Tenderness; No Distention Extremities: No Edema Neurological: - - Oriented to self and place Lines/Tubes/Other Access: Clean, Dry and Intact Peripheral IV Nutrition: Taking PO's Result Diagrams: 03/27/19 06:18 03/30/19 05:51 Assess/Plan/Problems-Billing Assessment: Mr. Garcia is a 63 yo M with PMH of alcohol abuse, Wernicke's encephalopathy, dementia, and acute HR with ejection fraction of 30% in 2008; who presented to the ED after a witnessed seizure. - Patient Problems (1) Seizure Code(s): R56.9 - UNSPECIFIED CONVULSIONS Comment: - Seizures witnessed by EMS; no clear history of seizures - Suspect this was r/t alcohol withdrawal - EEG pending - Appreciate neurology consult; anticonvulsants not indicated at this time - Continue diazepam taper (2) Alcohol abuse Code(s): F10.10 - ALCOHOL ABUSE, UNCOMPLICATED Comment: - With alcoholic dementia - Concern for possible Wernicke's encephalopathy - Ammonia mildly elevated - Appreciate Psych eval for capacity; no safe discharge plan and may need placement - Continue high-dose thiamine per neurology, diazepam taper; start lactulose (3) Transaminitis Code(s): R74.0 - NONSPEC ELEV OF LEVELS OF TRANSAMNS & LACTIC ACID DEHYDRGNSE Comment: - Now resolved - Likely related to alcohol abuse - Acute hepatitis panel negative - Liver US shows fatty infiltration, but no clear evidence of cirrhosis (4) Hyponatremia Code(s): E87.1 - HYPO-OSMOLALITY AND HYPONATREMIA Comment: - Improving - Possibly secondary to alcohol abuse - Continue to trend (5) Homeless Code(s): Z59.0 - HOMELESSNESS Comment: - Social work following - Already involved in program to help remain in the community, but seems to be failing in the community - Pending capacity eval (6) DVT prophylaxis Code(s): Z29.9 - ENCOUNTER FOR PROPHYLACTIC MEASURES, UNSPECIFIED Comment: - Lovenox (7) Full code status Code(s): Z78.9 - OTHER SPECIFIED HEALTH STATUS Comment: Status and Disposition: Inpatient for alcohol withdrawal and monitoring. D/c plan unclear. Social work following. Attending: Asher Israel
--- NOTE | 2019-03-30 17:10 | CONSULT ---
Identification - Patient Identification Reason for Psychiatric Consultation: Other - Capacity determination for possible [facility] placement. -: Patient is a 63 year old, M admitted on 03/26/19. 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 Psychiatry was asked to do a capacity determination for [facility] placement. At the time of evaluation Jimbo was alone laying in bed without any distress. He wa alert and oriented to the day ( ) month February but year was fine. At first was pleasant until the question of place came up. He wants to go to his own appartment despite fact that he in unable to care for self. Discussions about snf made himupset to a point that he almost stopped talking and told this personal lines underwriter that he was upset. He doesn't appear to understand his inability to care for self if he was discharged to an independent living envioronment where as unable to appreciate the benifits of being in a safe place like snf. He denies and din't appear to experiencing any delusion or hallucinations. Denies SI or HI. Memory functions are moderate to severely impaired. His insight and judgement is impaired as well. Mr. Garcia lacks capacity to make an informed and rational decision for snf placement at this time. Exam Appearance: Well Developed/Nourished Hygiene: Mal-odorous Grooming: Disheveled Psychomotor Activities: Normal Exhibits Abnormal Movement: No Attitude and Relatedness: Minimally Cooperative Eye Contact: Fair - Speech Quality: Unpressured Latencies: Normal Quantity: Appropriate Patient's Decription of Mood: "Okay" Observed Affect: Tense Patient's Thought Process: Coherent, Circumstantial, Impoverished Thought Content: No Passive Wish, No Suicidal Planning, No Homicidal Ideation, No Paranoid Ideation Experiencing Hallucinations: No, Sensorium is Clear Type of Hallucinations: Visual: No, Auditory: No, Command: No Level of Consciousness: Alert Orientation: Yes Orientated to Person, No Orientated to Time, No Orientated to Place Impulse Control: Tenuous Insight and Judgement: Impaired Impression - Impression Merits Inpatient Hospitalization: No Plan - Treatment Plan Continued Medication Management: Continue Outpt Medication Medications: Current Medications Acetaminophen (Tylenol Tab*) 650 mg PO Q4H PRN PRN Reason: PAIN Diazepam (Valium Tab(*)) 5 mg PO Q12H [facility] Last Admin: 03/30/19 05:04 Dose: 5 mg Enoxaparin Sodium (Lovenox(*)) 40 mg SUBCUT Q24H [facility] Last Admin: 03/29/19 21:07 Dose: 40 mg Folic Acid (Folvite Tab*) 1 mg PO DAILY [facility] Last Admin: 03/30/19 08:01 Dose: 1 mg Lactulose (Lactulose*) 15 ml PO TID [facility] Last Admin: 03/30/19 14:55 Dose: 15 ml Multivitamins/Minerals (Theragran/Minerals Tab*) 1 tab PO DAILY [facility] Last Admin: 03/30/19 08:01 Dose: 1 tab - Discharge Plan Discharge Plan: Consider Longer Term Tx - Fdc
[2019-03-31] MEDS: Enoxaparin(*) 40 MG/0.4 ML SYR SUBCUT SCH ×2 (00:24→21:33)
[2019-03-31] MEDS: Diazepam TAB(*) 5 MG PO SCH (06:12)
[2019-03-31 06:42] LABS: BUN/Creatinine Ratio 14.5 (8-20); EGFR African American 158.5 (>60); Potassium 4.3 mmol/L (3.5-5.0)
[2019-03-31] MEDS: Multivitamins/Minerals TAB PO SCH (07:47)
[2019-03-31] MEDS: Folic Acid TAB* 1 MG PO SCH (07:47)
[2019-03-31] MEDS: Lactulose* 15 ML UDC PO SCH ×2 (07:48→21:33)
--- NOTE | 2019-03-31 09:30 | PN ---
Subjective Date of Service: 03/31/19 Interval History: Mr. Garcia is feeling okay today. He offers no complaints. Slept well and ate breakfast already. He wants to go home but is agreeable to staying in the hospital for now. Denies CP, SOB, N/V. No concerns from nursing. Family History: Unchanged from Admission Social History: Unchanged from Admission Past Medical History: Unchanged from Admission Objective Active Medications: Acetaminophen (Tylenol Tab*) 650 mg PO Q4H PRN PAIN Diazepam (Valium Tab(*)) 5 mg PO Q12H [facility] Enoxaparin Sodium (Lovenox(*)) 40 mg SUBCUT Q24H [facility] Folic Acid (Folvite Tab*) 1 mg PO DAILY [facility] Lactulose (Lactulose*) 15 ml PO BID [facility] Multivitamins/Minerals (Theragran/Minerals Tab*) 1 tab PO DAILY [facility] Vital Signs - 8 hr 03/31/19 03/31/19 03/31/19 03:15 06:12 07:53 Temperature 98.4 F 97.4 F Pulse Rate 70 74 Respiratory 20 18 20 Rate Blood Pressure 122/75 121/72 (mmHg) O2 Sat by Pulse 97 98 Oximetry Oxygen Devices in Use Now: None Appearance: Middle-aged male laying in bed in NAD Eyes: No Scleral Icterus Ears/Nose/Mouth/Throat: Mucous Membranes Moist Neck: NL Appearance and Movements; NL JVP, Trachea Midline Respiratory: Symmetrical Chest Expansion and Respiratory Effort, Clear to Auscultation Cardiovascular: NL Sounds; No Murmurs; No JVD, RRR Abdominal: NL Sounds; No Tenderness; No Distention Extremities: No Edema Neurological: - - Oriented to self and place Lines/Tubes/Other Access: Clean, Dry and Intact Peripheral IV Nutrition: Taking PO's Result Diagrams: 03/27/19 06:18 03/31/19 06:20 Assess/Plan/Problems-Billing Assessment: Mr. Garcia is a 63 yo M with PMH of alcohol abuse, Wernicke's encephalopathy, dementia, and acute HR with ejection fraction of 30% in 2008; who presented to the ED after a witnessed seizure. - Patient Problems (1) Seizure Code(s): R56.9 - UNSPECIFIED CONVULSIONS Comment: - Seizures witnessed by EMS; no clear history of seizures - Suspect this was r/t alcohol withdrawal - EEG still pending - Appreciate neurology consult; anticonvulsants not indicated at this time - D/c diazepam (2) Alcohol abuse Code(s): F10.10 - ALCOHOL ABUSE, UNCOMPLICATED Comment: - With alcoholic dementia - Concern for possible Wernicke's encephalopathy - Ammonia mildly elevated - Appreciate Psych eval for capacity; patient lacks capacity to make medical decisions - Continue high-dose thiamine per neurology; decrease lactulose (3) Transaminitis Code(s): R74.0 - NONSPEC ELEV OF LEVELS OF TRANSAMNS & LACTIC ACID DEHYDRGNSE Comment: - Now resolved - Likely related to alcohol abuse - Liver US shows fatty infiltration, but no clear evidence of cirrhosis (4) Hyponatremia Code(s): E87.1 - HYPO-OSMOLALITY AND HYPONATREMIA Comment: - Resolved - Possibly secondary to alcohol abuse (5) Homeless Code(s): Z59.0 - HOMELESSNESS Comment: - Social work following - Already involved in program to help remain in the community, but seems to be failing in the community - Lacks capacity to make decisions and will need placement (6) DVT prophylaxis Code(s): Z29.9 - ENCOUNTER FOR PROPHYLACTIC MEASURES, UNSPECIFIED Comment: - Lovenox (7) Full code status Code(s): Z78.9 - OTHER SPECIFIED HEALTH STATUS Comment: Status and Disposition: Inpatient for alcohol withdrawal and monitoring. Lacks capacity to make decisions and will need placement as he cannot care for himself at home. Attending: Linnea Mcduffie
[2019-03-31] MEDS ORDERED: Pneumococcal *Vac Polyvalent 0.5 ML VIAL IM ONE (15:50)
[2019-04-01] MEDS: Lactulose* 15 ML UDC PO SCH ×2 (09:18→21:51)
[2019-04-01] MEDS: Folic Acid TAB* 1 MG PO SCH (09:18)
[2019-04-01] MEDS: Multivitamins/Minerals TAB PO SCH (09:18)
--- NOTE | 2019-04-01 13:16 | PN ---
Subjective Date of Service: 04/01/19 Interval History: Mr. Garcia is feeling well this morning. He offers no complaints. States he has just been watching TV. Has been getting up independently in his room. Denies CP , SOB, N/V. No concerns from nursing. Family History: Unchanged from Admission Social History: Unchanged from Admission Past Medical History: Unchanged from Admission Objective Active Medications: Acetaminophen (Tylenol Tab*) 650 mg PO Q4H PRN PAIN Enoxaparin Sodium (Lovenox(*)) 40 mg SUBCUT Q24H KARRIE Folic Acid (Folvite Tab*) 1 mg PO DAILY KARRIE Lactulose (Lactulose*) 15 ml PO BID KARRIE Multivitamins/Minerals (Theragran/Minerals Tab*) 1 tab PO DAILY KARRIE Vital Signs - 8 hr 04/01/19 04/01/19 04/01/19 07:44 08:00 11:15 Temperature 97.8 F 98.4 F Pulse Rate 74 88 Respiratory 20 16 20 Rate Blood Pressure 123/75 113/74 (mmHg) O2 Sat by Pulse 98 98 Oximetry Oxygen Devices in Use Now: None Appearance: Middle-aged male sitting in bed in NAD Eyes: No Scleral Icterus Ears/Nose/Mouth/Throat: Mucous Membranes Moist Neck: NL Appearance and Movements; NL JVP, Trachea Midline Respiratory: Symmetrical Chest Expansion and Respiratory Effort, Clear to Auscultation Cardiovascular: NL Sounds; No Murmurs; No JVD, RRR Abdominal: NL Sounds; No Tenderness; No Distention Extremities: No Edema Neurological: - - Oriented to self and place Lines/Tubes/Other Access: Clean, Dry and Intact Peripheral IV Nutrition: Taking PO's Result Diagrams: 03/27/19 06:18 03/31/19 06:20 Assess/Plan/Problems-Billing Assessment: Mr. Garcia is a 63 yo M with PMH of alcohol abuse, Wernicke's encephalopathy, dementia, and acute HR with ejection fraction of 30% in 2008; who presented to the ED after a witnessed seizure. - Patient Problems (1) Seizure Code(s): R56.9 - UNSPECIFIED CONVULSIONS Comment: - Seizures witnessed by EMS; no clear history of seizures - Suspect this was r/t alcohol withdrawal - EEG still pending - Appreciate neurology consult; anticonvulsants not indicated at this time - Completed diazepam taper (2) Alcohol abuse Code(s): F10.10 - ALCOHOL ABUSE, UNCOMPLICATED Comment: - With alcoholic dementia - Concern for possible Wernicke's encephalopathy - Ammonia mildly elevated - Appreciate Psych eval for capacity; patient lacks capacity to make medical decisions - Continue thiamine for Wernicke's prophylaxis, lactulose (3) Transaminitis Code(s): R74.0 - NONSPEC ELEV OF LEVELS OF TRANSAMNS & LACTIC ACID DEHYDRGNSE Comment: - Now resolved - Likely related to alcohol abuse - Liver US shows fatty infiltration, but no clear evidence of cirrhosis (4) Hyponatremia Code(s): E87.1 - HYPO-OSMOLALITY AND HYPONATREMIA Comment: - Resolved - Possibly secondary to alcohol abuse (5) Homeless Code(s): Z59.0 - HOMELESSNESS Comment: - Social work following - Already involved in program to help remain in the community, but seems to be failing in the community - Lacks capacity to make decisions and will need placement (6) DVT prophylaxis Code(s): Z29.9 - ENCOUNTER FOR PROPHYLACTIC MEASURES, UNSPECIFIED Comment: - Lovenox (7) Full code status Code(s): Z78.9 - OTHER SPECIFIED HEALTH STATUS Comment: Status and Disposition: Inpatient for alcohol withdrawal and monitoring. Lacks capacity to make decisions and will need placement as he cannot care for himself at home. Attending: Linnea Mcduffie
[2019-04-01] MEDS: Thiamine TAB* 100 MG TAB PO SCH ×2 (14:49→21:50)
[2019-04-01] MEDS: Enoxaparin(*) 40 MG/0.4 ML SYR SUBCUT SCH (21:50)
[2019-04-02 05:58] LABS: BUN/Creatinine Ratio 20.5 (8-20); Calcium 8.9 mg/dL (8.6-10.3); EGFR African American 131.3 (>60); EGFR Non-African American 108.5 (>60); Potassium 4.1 mmol/L (3.5-5.0)
[2019-04-02] MEDS: Multivitamins/Minerals TAB PO SCH (08:23)
[2019-04-02] MEDS: Lactulose* 15 ML UDC PO SCH ×2 (08:23→21:09)
[2019-04-02] MEDS: Thiamine TAB* 100 MG TAB PO SCH ×3 (08:23→21:09)
[2019-04-02] MEDS: Folic Acid TAB* 1 MG PO SCH (08:23)
--- NOTE | 2019-04-02 12:06 | PN ---
Subjective Date of Service: 04/02/19 Interval History: Mr. Garcia is feeling well this morning. He offers no complaints. Has not been up OOB yet this morning. Good appetite. Denies CP, SOB, N/V. No concerns from nursing. Family History: Unchanged from Admission Social History: Unchanged from Admission Past Medical History: Unchanged from Admission Objective Active Medications: Acetaminophen (Tylenol Tab*) 650 mg PO Q4H PRN PAIN Enoxaparin Sodium (Lovenox(*)) 40 mg SUBCUT Q24H KARRIE Folic Acid (Folvite Tab*) 1 mg PO DAILY KARRIE Lactulose (Lactulose*) 15 ml PO BID KARRIE Multivitamins/Minerals (Theragran/Minerals Tab*) 1 tab PO DAILY KARRIE Thiamine HCl (Vitamin B-1 Tab*) 100 mg PO TID KARRIE Oxygen Devices in Use Now: None Appearance: Middle-aged unkempt male laying in bed in NAD Eyes: No Scleral Icterus Ears/Nose/Mouth/Throat: Mucous Membranes Moist Neck: NL Appearance and Movements; NL JVP, Trachea Midline Respiratory: Symmetrical Chest Expansion and Respiratory Effort, Clear to Auscultation Cardiovascular: NL Sounds; No Murmurs; No JVD, RRR Abdominal: NL Sounds; No Tenderness; No Distention Extremities: No Edema Neurological: - - Oriented to self and place Lines/Tubes/Other Access: Clean, Dry and Intact Peripheral IV Nutrition: Taking PO's Result Diagrams: 03/27/19 06:18 04/02/19 05:33 Assess/Plan/Problems-Billing Assessment: Mr. Garcia is a 63 yo M with PMH of alcohol abuse, Wernicke's encephalopathy, dementia, and acute HR with ejection fraction of 30% in 2008; who presented to the ED after a witnessed seizure. - Patient Problems (1) Seizure Code(s): R56.9 - UNSPECIFIED CONVULSIONS Comment: - Seizures witnessed by EMS; no clear history of seizures - Suspect this was r/t alcohol withdrawal - EEG still pending - Appreciate neurology consult; anticonvulsants not indicated at this time - Completed diazepam taper (2) Alcohol abuse Code(s): F10.10 - ALCOHOL ABUSE, UNCOMPLICATED Comment: - With alcoholic dementia - Ammonia resolved with lactulose - Appreciate Psych eval for capacity; patient lacks capacity to make medical decisions - Continue thiamine for Wernicke's prophylaxis, lactulose (3) Transaminitis Code(s): R74.0 - NONSPEC ELEV OF LEVELS OF TRANSAMNS & LACTIC ACID DEHYDRGNSE Comment: - Now resolved - Likely related to alcohol abuse - Liver US shows fatty infiltration, but no clear evidence of cirrhosis (4) Hyponatremia Code(s): E87.1 - HYPO-OSMOLALITY AND HYPONATREMIA Comment: - Resolved - Possibly secondary to alcohol abuse (5) Homeless Code(s): Z59.0 - HOMELESSNESS Comment: - Social work following - Already involved in program to help remain in the community, but seems to be failing in the community - Lacks capacity to make decisions and will need placement (6) DVT prophylaxis Code(s): Z29.9 - ENCOUNTER FOR PROPHYLACTIC MEASURES, UNSPECIFIED Comment: - Lovenox (7) Full code status Code(s): Z78.9 - OTHER SPECIFIED HEALTH STATUS Comment: Status and Disposition: Inpatient for alcohol withdrawal and monitoring. Lacks capacity to make decisions and will need placement as he cannot care for himself at home. Attending: Kim Patel
[2019-04-02] MEDS ORDERED: Acetaminophen TAB* 325 MG PO PRN (14:17)
[2019-04-02] MEDS: Enoxaparin(*) 40 MG/0.4 ML SYR SUBCUT SCH (21:10)
[2019-04-03] MEDS: Folic Acid TAB* 1 MG PO SCH (08:41)
[2019-04-03] MEDS: Thiamine TAB* 100 MG TAB PO SCH ×3 (08:41→21:25)
[2019-04-03] MEDS: Multivitamins/Minerals TAB PO SCH (08:41)
[2019-04-03] MEDS: Lactulose* 15 ML UDC PO SCH ×2 (08:41→21:25)
--- NOTE | 2019-04-03 11:45 | PN ---
Subjective Date of Service: 04/03/19 Interval History: Mr. Garica feels fine this morning. He offers no complaints and is not forthcoming with any information. He denies CP, SOB, N/V. When questioned about back pain, he does admit to having back pain this morning which is now resolved. He thinks his nurse gave him something for the pain. Nursing reported this morning that he was c/o back pain and he stated that Valium is the only medication that works for pain control. Family History: Unchanged from Admission Social History: Unchanged from Admission Past Medical History: Unchanged from Admission Objective Active Medications: Acetaminophen (Tylenol Tab*) 650 mg PO Q4H PRN Pain 1-02/01 Enoxaparin Sodium (Lovenox(*)) 40 mg SUBCUT Q24H KARRIE Folic Acid (Folvite Tab*) 1 mg PO DAILY KARRIE Lactulose (Lactulose*) 15 ml PO BID KARRIE Multivitamins/Minerals (Theragran/Minerals Tab*) 1 tab PO DAILY KARRIE Thiamine HCl (Vitamin B-1 Tab*) 100 mg PO TID KARRIE Vital Signs - 8 hr 04/03/19 04/03/19 08:00 09:23 Temperature 97.6 F Pulse Rate 79 Respiratory 16 20 Rate Blood Pressure 120/72 (mmHg) O2 Sat by Pulse 99 Oximetry Oxygen Devices in Use Now: None Appearance: Middle-aged male laying in bed in NAD Eyes: No Scleral Icterus Ears/Nose/Mouth/Throat: Mucous Membranes Moist Neck: NL Appearance and Movements; NL JVP, Trachea Midline Respiratory: Symmetrical Chest Expansion and Respiratory Effort, Clear to Auscultation Cardiovascular: NL Sounds; No Murmurs; No JVD, RRR Abdominal: NL Sounds; No Tenderness; No Distention Extremities: No Edema Neurological: - - Oriented to self and place Lines/Tubes/Other Access: Clean, Dry and Intact Peripheral IV Nutrition: Taking PO's Result Diagrams: 03/27/19 06:18 04/02/19 05:33 Assess/Plan/Problems-Billing Assessment: Mr. Garcia is a 63 yo M with PMH of alcohol abuse, Wernicke's encephalopathy, dementia, and acute HR with ejection fraction of 30% in 2008; who presented to the ED after a witnessed seizure. - Patient Problems (1) Seizure Code(s): R56.9 - UNSPECIFIED CONVULSIONS Comment: - Seizures witnessed by EMS; no clear history of seizures - Suspect this was r/t alcohol withdrawal - EEG unremarkable for seizure activity - Appreciate neurology consult; anticonvulsants not indicated at this time - Completed diazepam taper (2) Alcohol abuse Code(s): F10.10 - ALCOHOL ABUSE, UNCOMPLICATED Comment: - With alcoholic dementia - Ammonia resolved with lactulose - Appreciate Psych eval for capacity; patient lacks capacity to make medical decisions - Continue PO thiamine for Wernicke's prophylaxis (TID for 7 days then daily), lactulose (3) Transaminitis Code(s): R74.0 - NONSPEC ELEV OF LEVELS OF TRANSAMNS & LACTIC ACID DEHYDRGNSE Comment: - Now resolved - Likely related to alcohol abuse - Liver US shows fatty infiltration, but no clear evidence of cirrhosis (4) Hyponatremia Code(s): E87.1 - HYPO-OSMOLALITY AND HYPONATREMIA Comment: - Resolved - Possibly secondary to alcohol abuse (5) Homeless Code(s): Z59.0 - HOMELESSNESS Comment: - Social work following - Already involved in program to help remain in the community, but seems to be failing in the community - Lacks capacity to make decisions and will need placement (6) DVT prophylaxis Code(s): Z29.9 - ENCOUNTER FOR PROPHYLACTIC MEASURES, UNSPECIFIED Comment: - Lovenox (7) Full code status Code(s): Z78.9 - OTHER SPECIFIED HEALTH STATUS Comment: Status and Disposition: Senior Living care. Lacks capacity to make decisions and will need placement as he cannot care for himself at home. Attending: Kim Patel
[2019-04-03] MEDS: Enoxaparin(*) 40 MG/0.4 ML SYR SUBCUT SCH (21:25)
[2019-04-04 06:31] LABS: Hematocrit 42 % (42-52); Hemoglobin 14.3 g/dL (14.0-18.0); Mean Platelet Volume 8.1 fL (7.4-10.4); Platelet Count 186 10^3/uL (150-450)
[2019-04-04] MEDS: Lactulose* 15 ML UDC PO SCH ×2 (07:41→20:03)
[2019-04-04] MEDS: Folic Acid TAB* 1 MG PO SCH (07:41)
[2019-04-04] MEDS: Multivitamins/Minerals TAB PO SCH (07:42)
[2019-04-04] MEDS: Thiamine TAB* 100 MG TAB PO SCH ×3 (07:42→20:03)
[2019-04-04] MEDS: Enoxaparin(*) 40 MG/0.4 ML SYR SUBCUT SCH (22:01)
[2019-04-05] MEDS: Folic Acid TAB* 1 MG PO SCH (10:11)
[2019-04-05] MEDS: Thiamine TAB* 100 MG TAB PO SCH ×2 (10:12→14:11)
[2019-04-05] MEDS: Multivitamins/Minerals TAB PO SCH (10:12)
[2019-04-05] MEDS: Lactulose* 15 ML UDC PO SCH (10:12)
[2019-04-05 11:44] VITALS: BP 106/81
--- NOTE | 2019-04-05 13:30 | DS ---
AMENDED REPORT NOW INCLUDES DESIGNATED COSIGNER CC: Dr. Anabelle Early, [facility] * DISCHARGE SUMMARY: DATE OF ADMISSION: 03/26/19 DATE OF DISCHARGE: 04/05/19 PRIMARY CARE PROVIDER: Dr. Anabelle Early at [facility]. MY ATTENDING WHILE IN THE HOSPITAL: Dr. Carroll Israel.* (DICTATED BY GUZMAN ASHTON) PRIMARY DISCHARGE DIAGNOSES: 1. Alcohol withdrawal seizure. 2. Wernicke's encephalopathy. 3. Korsakoff dementia. SECONDARY DISCHARGE DIAGNOSES: 1. History of alcoholic cardiomyopathy. 2. Prolonged history of alcohol abuse. STUDIES DONE WHILE IN THE HOSPITAL: Brain CT from 03/26/19 read as: No acute intracranial pathology, diffuse involutional change and chronic small vessel ischemic changes. Liver ultrasound from 03/29/19 read as: Normal examination of the gallbladder, liver with increased echogenicity with nonspecific finding. Electroencephalogram from 04/02/19 read as: Awake and briefly asleep EEG within normal limits. MEDICATIONS AT DISCHARGE: 1. Tylenol 650 mg p.o. q.4 hours as needed. 2. Folic 1 mg p.o. daily. 3. Lactulose 17 mL p.o. b.i.d. 4. Multivitamin 1 tab p.o. daily. 5. Thiamine 100 mg p.o. t.i.d. until 04/09/19, thiamine 100 mg p.o. daily thereafter. 6. Vitamin B12 at 1000 mcg p.o. daily. Medication discontinued at discharge: Depakote 125 mg p.o. t.i.d. HOSPITAL COURSE: This is a brief summary of the patient's presentation. For more details, please see the history and physical from Dr. Musa Patel on and the consultation from Dr. Enoch Cramer on 03/27/19. In brief, the patient is a 63- year-old male with past medical history significant for the above, who had a seizure at the [employer] that was brief and had postictal state for approximately 20 minutes. The patient has not had any alcohol in 24 hours. The patient was admitted to the hospital. The patient displayed consistent confabulation in the hospital consistent with his baseline , possibly worsened based on the records. The patient was started on treatment dose of thiamine for possible Wernicke's encephalopathy. The patient had slightly elevated ammonia level and was treated with lactulose as above. The patient's mental status leveled out; however, he continued to have confabulation and dementia per his baseline. The patient had elevated transaminases, which trended down. The patient had high vitamin B6 level and borderline low B12 level. The patient had acute hepatitis panel as well as a liver ultrasound as above. His hepatitis panel was negative and it was deemed that his transaminitis was likely from alcohol abuse. The patient was seen in consultation by Dr. Pascal of Psychiatry for a capacity evaluation and was deemed to not have capacity to refuse jail placement. The patient had an EEG, which was negative as above. We were unable to find any surrogate decision maker for the patient. The patient had diazepam taper for his alcohol withdrawal, which was finished without persistent signs of withdrawal. The patient was previously a resident at [facility] and a bed offer was obtained from there again. No surrogate decision maker was able to be found and the patient was stable and amenable for discharge to [facility] on 04/05/19. Due diligence was given towards finding a surrogate decision maker and none was able to be found. PHYSICAL EXAM ON THE DAY OF DISCHARGE: General: The patient is a 63-year-old male, who appears stated age, somewhat disheveled and is sitting on the bed, in no acute distress. Vital Signs: Temperature 98.3, pulse rate 71, respiratory rate 20, oxygen saturation 98% on room air, blood pressure 106/81. HEENT: Head normocephalic and atraumatic. Sclerae anicteric. No conjunctival injection. Nasal mucosa moist. Oral mucosa moist. No pharyngeal erythema, discharge, or exudate. Neck: Supple, nontender. No lymphadenopathy. No carotid bruits auscultated. No JVD. Cardiac: Regular rate and rhythm. No clicks, murmurs, gallops, or rubs. Pulses are 2+ in the bilateral dorsalis pedis, posterior tibialis, and radial areas. Respiratory: Clear to auscultation bilaterally. No wheezes, rales, or rhonchi. Good aeration bilaterally. Abdomen: Soft, nontender, nondistended. Bowel sounds present and normoactive in all 4 quadrants. No hepatosplenomegaly. No abdominal bruits auscultated. No hepatojugular reflux. Genitourinary: No suprapubic or CVA tenderness. Skin: Clean, dry, and intact. Neuro: Cranial nerves II through XII intact. The patient is alert, oriented x3, but consistently makes confabulated statements including that he was previously routinely prescribed Valium. There is no record of this. He was told that he was going to be returned to his apartment, though he was previously evicted from his apartment and that no one had told him that he is going to a jail, which is contradictory to the Psychiatry note. Psychiatric: Pleasant and cooperative. DISCHARGE PLAN: The patient will be discharged to [facility] for presumed long- term care. The patient will be continued on vitamins and lactulose as above. It was recommended that the patient not have any ongoing seizure prophylaxis as this seizure was provoked. The patient could be trialed off lactulose as his ammonia is only slightly elevated only one reading to assess for its effect on his mental status. The patient will return to the hospital for seizures, passing out, chest pain, or other alarming symptoms. The patient should at some point follow up with Cardiology for a repeat echocardiogram to assess his EF with alcohol abstinence. The patient should have a regular unrestricted diet and engage in activity as tolerated. TIME SPENT: Approximately 60 minutes was spent on the discharge of this patient , 30 of which was spent [id number] with the patient obtaining history and physical and discussing treatment plan. GUZMAN ASHTON [id number]/[facility] #: [id number] LUCÍA
[2019-04-09] MEDS ORDERED: Thiamine TAB* 100 MG TAB PO SCH (09:00)
== END 2019-04-05 14:00 | DRG 775 ==
LOC: ED 16:35 → MEDTELE 22:01
PROVIDERS: ADMIT Internal Medicine; ATTEND Internal Medicine
PROC: 4A00X4Z Measurement of Central Nervous Electrical Activity, External Approach (ICD-10-PCS; principal; 2019-04-02)
DX: F10.239 Alcohol dependence with withdrawal, unspecified (principal); G40.89 Other seizures; E51.2 Wernicke's encephalopathy; I42.6 Alcoholic cardiomyopathy; E87.1 Hypo-osmolality and hyponatremia; E87.2 Acidosis; Y90.9 Presence of alcohol in blood, level not specified; M54.30 Sciatica, unspecified side; F41.9 Anxiety disorder, unspecified; R40.2362 Coma scale, best motor response, obeys commands, at arrival to emergency department; R40.2142 Coma scale, eyes open, spontaneous, at arrival to emergency department; R40.2252 Coma scale, best verbal response, oriented, at arrival to emergency department; F17.210 Nicotine dependence, cigarettes, uncomplicated; F10.26 Alcohol dependence with alcohol-induced persisting amnestic disorder; M48.061 Spinal stenosis, lumbar region without neurogenic claudication; G89.29 Other chronic pain; M54.9 Dorsalgia, unspecified; I10 Essential (primary) hypertension; R74.0 Nonspecific elevation of levels of transaminase and lactic acid dehydrogenase [LDH]; Z91.011 Allergy to milk products; Z59.0 Homelessness
CPT/HCPCS: 36415; 70450; 76705; 80048; 80053; 80074; 80076; 80164; 80320; 81003; 81015; 82140; 82436; 82542; 82607; 82746; 83605; 83735; 83930; 83935; 84133; 84207; 84300; 84443; 85014; 85018; 85025; 85049; 85610; 87086; 90732; 93005; 95819; 99284; 99406; A9270-GY; G0480; J1650; J3411; J3480